=== PATIENT | female | born 1995 | race Caucasian/White ===

== ENCOUNTER 2019-07-16 12:12 | Emergency (ER) | payer OTHER ==
[~2019-07-16] VITALS: Ht 175.3 cm; Wt 63.5 kg
--- OUTSIDE RECORDS SUMMARY | ~2019-07-16 | XMS | Encounter Summary ---
Demographics + + + | Address | [address] | | | [place] [address] | + + + | Home Phone | | + + + | Preferred Language | Unknown | + + + | Marital Status | Single | + + + | Synagogue Affiliation | Unknown | + + + | Race | White | + + + | Ethnic Group | Not or | + + + Author + + + | Author | [facility] | + + + | Organization | [facility] | + + + | Address | Unknown | + + + | Phone | Unavailable | + + + Support + + +---------+ + | Name | Relationship | Address | Phone | + + +---------+ + | Marylou Grubbs | ECON | Unknown | | + + +---------+ + Care Team Providers + +------+ + | Care Multi Sensor Operator Name | Role | Phone | + [...] as of this encounter Progress Notes Interface, Dry Kiln Operator In - 04/06/2005 7:22 AM PDT [id number] [facility] Date: 03/27/2005 Clinic: Dermatology [...] Matty Robles M.D. Professor of Dermatology / [id number] / [id number] / [id number] / [id number] Electronically signed by Matty Robles 04-05-2005 05:33:41 PM documented i n this encounter Plan of Treatment Not on filedocumented as of this encounter Visit Diagnoses Not on filedocumented in this encounter"
--- OUTSIDE RECORDS SUMMARY | ~2019-07-16 | XMS | Clinical Summary ---
Demographics + + + | Address | [address] | | | [place] [address] | + + + | Home Phone | | + + + | Preferred Language | Unknown | + + + | Marital Status | Single | + + + | Judaism Affiliation | Unknown | + + + [...] Team Providers + +------+ + | Care Director Of Teaching And Learning Name | Role | Phone | + +------+ + PCP | Unavailable | + +------+ + Source Comments JENNA is fully live on both [facility] Ambulatory and [facility] InPatient.[facility] Allergies No Known Allergies Medications [...] | [facility] | xxxxxxxxxxx | 12/06/19 | [phone] | [address] | PPO | | SHIELD | E BCBS | x | 18-Pre | 8 | [address] | | | | | | sent | | [place], | | | | | | | | [place] | | | | | | | | [phone] | | + +--------+ +--------+ + +------+ [...] | | al/Fam | | 1968 | [phone] | [place] [address] | | | marlen | | | 8 (Home) | | + +--------+ +--------+ + +"
--- OUTSIDE RECORDS SUMMARY | ~2019-07-16 | XMS | Encounter Summary ---
Demographics + + + | Address | [address] | | | [place] [address] | + + + | Home Phone | | + + + | Preferred Language | Unknown | + + + | Marital Status | Single | + + + | Alevism Affiliation | Unknown | + + + | Race | White | + + + | Ethnic Group | Not or | + + + Author + + + | Author | [facility] | + + + | Organization | [facility] | + + + | Address | Unknown | + + + | Phone | Unavailable | + + + Support + + +---------+ + | Name | Relationship | Address | Phone | + + +---------+ + | Marylou Grubbs | ECON | Unknown | | + + +---------+ + Care Team Providers + +------+ + | Care Storage Center Manager Name | Role | Phone | + [...] as of this encounter Progress Notes Interface, Director Nicu In - 04/03/2005 9:09 AM PDT [id number] [facility] Date: 03/27/2005 Clinic: Dermatology [...] Matty Robles M.D. Professor of Dermatology / [id number] / [id number] / [id number] / [id number] documented i n this encounter Plan of Treatment Not on filedocumented as of this encounter Visit Diagnoses Not on filedocumented in this encounter"
--- OUTSIDE RECORDS SUMMARY | ~2019-07-16 | XMS | Encounter Summary ---
Demographics + + + | Address | [address] | | | [place] [address] | + + + | Home Phone | | + + + | Preferred Language | Unknown | + + + | Marital Status | Single | + + + | Shinto Affiliation | Unknown | + + + | Race | White | + + + | Ethnic Group | Not or | + + + Author + + + | Author | [facility] | + + + | Organization | [facility] | + + + | Address | Unknown | + + + | Phone | Unavailable | + + + Support + + +---------+ + | Name | Relationship | Address | Phone | + + +---------+ + | Marylou Grubbs | ECON | Unknown | | + + +---------+ + Care Team Providers + +------+ + | Care Line Service Attendant Name | Role | Phone | + [...] as of this encounter Progress Notes Interface, Celery Stripper In - 04/06/2005 7:22 AM PDT [id number] [facility] Date: 03/27/2005 Clinic: Dermatology [...] Matty Robles M.D. Professor of Dermatology / [id number] / [id number] / [id number] / [id number] Electronically signed by Matty Robles 04-05-2005 05:33:41 PM documented i n this encounter Plan of Treatment Not on filedocumented as of this encounter Visit Diagnoses Not on filedocumented in this encounter"
--- OUTSIDE RECORDS SUMMARY | ~2019-07-16 | XMS | Encounter Summary ---
Demographics + + + | Address | [address] | | | [place] [address] | + + + | Home Phone | | + + + | Preferred Language | Unknown | + + + | Marital Status | Single | + + + | Hoahaoism Affiliation | Unknown | + + + | Race | White | + + + | Ethnic Group | Not or | + + + Author + + + | Author | [facility] | + + + | Organization | [facility] | + + + | Address | Unknown | + + + | Phone | Unavailable | + + + Support + + +---------+ + | Name | Relationship | Address | Phone | + + +---------+ + | Marylou Grubbs | ECON | Unknown | | + + +---------+ + Care Team Providers + +------+ + | Care Explosive Ordnance Disposal Technician Name | Role | Phone | + [...] as of this encounter Progress Notes Interface, Kitchen Lead In - 04/03/2005 9:09 AM PDT [id number] [facility] Date: 03/27/2005 Clinic: Dermatology [...] Matty Robles M.D. Professor of Dermatology / [id number] / [id number] / [id number] / [id number] documented i n this encounter Plan of Treatment Not on filedocumented as of this encounter Visit Diagnoses Not on filedocumented in this encounter"
--- OUTSIDE RECORDS SUMMARY | ~2019-07-16 | XMS | Encounter Summary ---
Demographics + + + | Address | [address] | | | [place] [address] | + + + | Home Phone | | + + + | Preferred Language | Unknown | + + + | Marital Status | Single | + + + | Restorationist Affiliation | Unknown | + + + [...] Team Providers + +------+ + | Care Barrelhead Inspector Name | Role | Phone | + [...] as of this encounter Progress Notes Interface, Knife Cutter In - 04/02/2005 10:25 AM PDT [id number] [facility] Consulting Physician: Matty Robles M.D. [...] Wart Cream to be obtained through the [facility]. Directions were given for how to reach the pharmacy. The patient was told to return to the clinic in 2 to 4 weeks for further evaluation and potential for other treatment. I spent 30 minutes talking with the patient, examining her, and applying the cantharidine. Matty Robles M.D. Professor of Dermatology / [id number] / [id number] / [id number] / [id number] cc: Gael Hernandez D.O. [address] [facility] [place] [address] Electronically signed by Matty Robles 03-07-2005 03:04:50 PM documented i n this encounter Plan of Treatment Not on filedocumented as of this encounter Visit Diagnoses Not on filedocumented in this encounter"
--- OUTSIDE RECORDS SUMMARY | ~2019-07-16 | XMS | Encounter Summary ---
Demographics + + + | Address | [address] | | | [place] [address] | + + + | Home Phone | | + + + | Preferred Language | Unknown | + + + | Marital Status | Single | + + + | Buddhism Affiliation | Unknown | + + + [...] Team Providers + +------+ + | Care Health And Safety Manager Name | Role | Phone | [...] as of this encounter Progress Notes Interface, Garden Labourer In - 04/02/2005 10:25 AM PDT [id number] [facility] Consulting Physician: Matty Robles M.D. [...] Wart Cream to be obtained through the [facility]. Directions were given for how to reach the pharmacy. The patient was told to return to the clinic in 2 to 4 weeks for further evaluation and potential for other treatment. I spent 30 minutes talking with the patient, examining her, and applying the cantharidine. Matty Robles M.D. Professor of Dermatology / [id number] / [id number] / [id number] / [id number] cc: Gael Hernandez D.O. [address] [place] [address] Electronically signed by Matty Robles 03-07-2005 03:04:50 PM documented i n this encounter Plan of Treatment Not on filedocumented as of this encounter Visit Diagnoses Not on filedocumented in this encounter"
--- OUTSIDE RECORDS SUMMARY | ~2019-07-16 | XMS | Clinical Summary ---
Demographics + + + | Address | [address] | | | [place] [address] | + + + | Home Phone | | + + + | Preferred Language | Unknown | + + + | Marital Status | Single | + + + | Jain Affiliation | Unknown | + + + [...] Team Providers + +------+ + | Care Roads Superintendent Name | Role | Phone | + +------+ + PCP | Unavailable | + +------+ + Source Comments JENNA is fully live on both [facility] Ambulatory and [facility] InPatient.[facility] Allergies No Known Allergies Medications [...] | [facility] | xxxxxxxxxxx | 12/06/19 | [phone] | [address] | PPO | | SHIELD | E BCBS | x | 18-Pre | 8 | [address] | | | | | | sent | | [place], | | | | | | | | [place] | | | | | | | | [phone] | | + +--------+ +--------+ + +------+ [...] | | al/Fam | | 1968 | [phone] | [place] [address] | | | marlen | | | 8 (Home) | | + +--------+ +--------+ + +"
[~2019-07-16 12:12] MED LIST: ALKA-SELTZER P1 EA12 PO; AMITRIPTYLINE H50 MG PO; AMOXICILLIN500 MG PO; ANTI ANXIETY MED; CYMBALTA20 MG PO; DEPLIN-ALGAL O1 EAC1 PO; IMPLANON68 MG SQ; MONO-LINYAH1 EACH PO; NEURONTIN300 MG PO; NEURONTIN600 MG PO; PRISTIQ ER50 MG PO; PRISTIQ PO; SEROQUEL300 MG PO; SUBOXONE 2 MG-1 EAC2 SL; SUBOXONE 8 MG-1 EAC1 SL; TYLENOL WITH C1 EACH PO; ULTRAM50 MG PO
--- OUTSIDE RECORDS SUMMARY | 2019-07-16 12:18 | XMS ---
PreManage Notification: MARCIN BRAY Security Spa Assistant Manager Events No recent Security Events currently on file [facility] There are no care providers on record at this time. Vandana has no Care Guidelines for this patient. Lucian VISIT COUNT (12 MO.) 1 [facility] TOTAL 1 NOTE: Visits indicate total known visits. ED/UCC VISIT TRACKING (12 MO.) 07/16/2019 12:14 [facility] [place] TYPE: Emergency COMPLAINT: - WEAK, FEVER, DRUG USE INPATIENT VISIT TRACKING (12 MO.) No inpatient visits to display in this time frame [email or web address]
[2019-07-16] MEDS ORDERED: GABAPENTIN400 MG PO (12:59)
[2019-07-16] MEDS ORDERED: DIVALPROEX SOD500 MG PO (13:02)
[2019-07-16] MEDS ORDERED: VALACYCLOVIR500 MG PO (13:02)
[2019-07-16] MEDS ORDERED: AMOXICILLIN500 MG PO (16:05)
[2019-07-16] MEDS ORDERED: VENTOLIN HFA18 GM INH (16:05)
== END 2019-07-16 16:33 | disposition home or self-care (01) ==
LOC: ED 12:12
DX: J02.0 Streptococcal pharyngitis (principal); F17.200 Nicotine dependence, unspecified, uncomplicated; Z79.899 Other long term (current) drug therapy
CPT/HCPCS: 71046; 81001; 84703; 87880; 99283-25

== ENCOUNTER 2020-03-08 10:04 | Emergency (ER) | payer OTHER ==
[~2020-03-08] VITALS: Ht 175.3 cm; Wt 72.6 kg
--- OUTSIDE RECORDS SUMMARY | ~2020-03-08 | XMS | Encounter Summary ---
Demographics + + + | Address | [address] | | | [place] [address] | + + + | Home Phone | | + + + | Preferred Language | Unknown | + + + | Marital Status | Single | + + + | Episcopalian Affiliation | Unknown | + + + | Race | White | + + + | Ethnic Group | Not or | + + + Author + + + | Author | [facility] | + + + | Organization | [facility] | + + + | Address | Unknown | + + + | Phone | Unavailable | + + + Support + + +---------+ + | Name | Relationship | Address | Phone | + + +---------+ + | Marylou Grubbs | ECON | Unknown | | + + +---------+ + Care Team Providers + +------+ + | Care Oracle Webcenter Consultant Name | Role | Phone | + +------+ + PCP | Unavailable | + +------+ + Encounter Details +--------+ + + + + | Date | Type | Department | Care Team | Description | +--------+ + + + + | 03/27/ | Office | [facility] | Clinic, | Progress Note | | 2004 | Visit-Trans | | Dermatology | | | | cribed | | | | +--------+ + + + + Social History + +-------+ +--------+------+ | Tobacco Use | Types | Packs/Day | Years | Date | | | | | Used | | + +-------+ +--------+------+ | Never Assessed | | | | | + +-------+ +--------+------+ + + + | Sex Assigned at | Date Recorded | | | | + + + | Not on file | | + + + + + + + | Job Start Date | Occupation | Industry | + + + + | Not on file | Not on file | Not on file | + + + + + + + + | Travel History | Travel Start | Travel End | + + + + + + | No recent travel history available. | + + documented as of this encounter Progress Notes Interface, Management Trainee Marketing In - 04/06/2005 7:22 AM PDT [id number] [facility] Date: 03/27/2005 Clinic: Dermatology Subjective: The patient returns today for further treatment of her flat warts. She has had significant response to her initial visit where we treated her with Cantharone covered by Band-Aids. The patient has also been using Magic Wart Cream. She states that many of her lesions have resolved and many of the others have crusted and are exhibiting inflammatory reactions around the lesions. The patient and her mother are happy with the initial response. Objective: There are scattered pink flat papules located on the dorsal aspects of the hands and forearms. There are also scattered crusted papules without evidence of remaining wart. Assessment and Plan: Flat warts. The patient has had a good initial response to Cantharone and to Magic Wart Cream. She was extremely anxious about receiving any further treatment today. I discussed with her mother that I had hoped to apply Cantharone today for second time. The patient staunchly refused any further treatment today, stating that she has a swim meet coming up and would like to not be dealing with crusted lesions during that time. I instructed the mother and the patient to continue using the Magic Wart Cream. The patient will return to the clinic in 3-4 weeks for further evaluation and potential further treatment. I spent 10 minutes talking with the patient, examining her, and going over the treatment plan. Matty Robles M.D. Professor of Dermatology / [id number] / [id number] / [id number] / [id number] Electronically signed by Matty Robles 04-05-2005 05:33:41 PM documented i n this encounter Plan of Treatment Not on filedocumented as of this encounter Visit Diagnoses Not on filedocumented in this encounter"
--- OUTSIDE RECORDS SUMMARY | ~2020-03-08 | XMS | Clinical Summary ---
Demographics + + + | Address | [address] | | | [place] [address] | + + + | Home Phone | | + + + | Preferred Language | Unknown | + + + | Marital Status | Single | + + + | Cheondoism Affiliation | Unknown | + + + | Race | White | + + + | Ethnic Group | Not or | + + + Author + + + | Author | [facility] | + + + | Organization | [facility] | + + + | Address | Unknown | + + + | Phone | Unavailable | + + + Support + + +---------+ + | Name | Relationship | Address | Phone | + + +---------+ + | Marylou Grubbs | ECON | Unknown | | + + +---------+ + Care Team Providers + +------+ + | Care Superintendent Sales Name | Role | Phone | + +------+ + PCP | Unavailable | + +------+ + Source Comments JENNA is fully live on both [facility] Ambulatory and [facility] InPatient.[facility] Allergies No Known Allergies Medications Not on file Active Problems Not on file Social History + +-------+ +--------+------+ | Tobacco [...] recent travel history available. | + + Last Filed Vital Signs Not on file Plan of Treatment + + + + + | Health Maintenance | Due Date | Last Done | Comments | + + + + + | Influenza (Flu) | | | | | vaccination (#1) | 9 | | | + + + + + | Pneumococcal | Aged Out | | No longer eligible | | vaccination | | | based on patient's | | | | | age to complete this | | | | | topic | + + + + + Results Not on filefrom Last 3 Months Insurance + +--------+ +--------+ + +------+ | Payer | Benefi | Subscriber | Effect | Phone | Address | Type | | | t Plan | ID | mc | | | | | | / | | Dates | | | | | | Group | | | | | | + +--------+ +--------+ + +------+ | BLUE CROSS BLUE | [facility] | xxxxxxxxxxx | 12/06/19 | [phone] | [address] | PPO | | SHIELD | E BCBS | x | 18-Pre | 8 | [phone] | | | | | | sent | | [place], | | | | | | | | [place] | | | | | | | | [phone] | | + +--------+ +--------+ + +------+ + +--------+ +--------+ + + | Guarantor Name | Accoun | Relation to | Date | Phone | Billing Address | | | t Type | Patient | of | | | | | | | | | | + +--------+ +--------+ + + | YEISON BRAY | Person | Parent [birth year] | [address] | | | al/Fam | | 1968 | [phone] | [place] [address] | | | marlen | | | 8 (Home) | | + +--------+ +--------+ + +"
--- OUTSIDE RECORDS SUMMARY | ~2020-03-08 | XMS | Encounter Summary ---
Demographics + + + | Address | [address] | | | [place] [address] | + + + | Home Phone | | + + + | Preferred Language | Unknown | + + + | Marital Status | Single | + + + | Protestant Affiliation | Unknown | + + + | Race | White | + + + | Ethnic Group | Not or | + + + Author + + + | Organization | Unknown | + + + | Address | Unknown | + + + | Phone | Unavailable | + + + Support + + +---------+ + | Name | Relationship | Address | Phone | + + +---------+ + | Marylou Grubbs | ECON | Unknown | | + + +---------+ + Care Team Providers + +------+ + | Care Stair Builder Name | Role | Phone | + +------+ + PCP | Unavailable | + +------+ + Encounter Details +--------+ + + + + | Date | Type | Department | Care Team | Description | +--------+ + + + + | 02/27/ | Office | | Report, Outpatient | Progress Note | | 2005 | Visit-Trans | | Consultation | | | | cribed | | [...] as of this encounter Progress Notes Interface, Wind Operations Manager In - 04/02/2005 10:25 AM PDT [id number] [facility] Consulting Physician: Matty Robles M.D. Consultation Date: 02/27/2005 Consulting Physician: Gael Hernandez D.O. Reason For Requested Consultation: Treatment of flat warts. History of Present Illness: This is a 9-year-old white girl who presents with a 3-year history of flat warts. She has previously been treated with trichloroacetic acid applications and an oral course of Tagamet for 2 weeks. She has had little response to therapies. The patient's mother desires more aggressive treatment at this time. The lesions are nonpainful, nonbleeding, and nonpruritic. Past Medical History: Significant for hay fever. Medications: None. Allergies: No known drug allergies. Social History: The patient does not smoke cigarettes or drink alcohol. She is an avid swimmer. Family History: Significant for hay fever. There are no family members with asthma, eczema, or warts. Review of Systems: These were entirely negative. Physical Examination: Vital Signs: Blood pressure 100/58, pulse 72, and respirations 16. The patient was in no pain. General Appearance: The patient was healthy and in no acute distress. Mood and affect: The patient was alert and oriented x3 throughout the visit. Lymph Nodes: The patient had no palpable lymphadenopathy today. Skin: There were numerous skin-colored to pink, smooth, flat-topped papules located on the wrists, forearms, and most abundantly around and upon the knees. Remainder of the skin exam including examination of the scalp, face, neck, chest, back, arms, hands, abdomen, buttocks, genitalia, and feet was unremarkable. Assessment and Plan: Flat warts. The patient has over 50 lesions, and they have been nonresponsive to more standard therapies. I discussed all of the possible therapies with the mother today. We attempted to lightly electrodesiccate 1 lesion; however, the patient could not tolerate the pain, so this procedure was terminated. We then applied cantharidin to all of the affected areas and covered each of the areas with Band-Aids. I instructed the mother to take all of the Band-Aids off and to wash off the cantharidin later in the evening. I also prescribed Magic Wart Cream to be obtained through the [facility]. Directions were given for how to reach the pharmacy. The patient was told to return to the clinic in 2 to 4 weeks for further evaluation and potential for other treatment. I spent 30 minutes talking with the patient, examining her, and applying the cantharidine. Matty Robles M.D. Professor of Dermatology / [id number] / [id number] / [id number] / [id number] cc: Gael Hernandez D.O. [address] [facility] [address] Electronically signed by Matty Robles 03-07-2005 03:04:50 PM documented i n this encounter Plan of Treatment Not on filedocumented as of this encounter Visit Diagnoses Not on filedocumented in this encounter"
--- OUTSIDE RECORDS SUMMARY | ~2020-03-08 | XMS | Clinical Summary ---
Demographics + + + | Address | [address] | | | [place] [address] | + + + | Home Phone | | + + + | Preferred Language | Unknown | + + + | Marital Status | Single | + + + | Confucianist Affiliation | Unknown | + + + [...] Team Providers + +------+ + | Care Wood Crew Supervisor Name | Role | Phone | + +------+ + PCP | Unavailable | + +------+ + Source Comments JENNA is fully live on both [facility] Ambulatory and [facility] InPatient.[facility] Allergies No Known Allergies Medications Not on [...] | [facility] | xxxxxxxxxxx | 12/06/19 | [phone] | [address] | PPO | | SHIELD | E BCBS | x | 18-Pre | 8 | [address] | | | | | | sent | | [place], | | | | | | | | [place] | | | | | | | | [phone] | | + +--------+ +--------+ + +------+ [...] | | al/Fam | | 1968 | [phone] | [place] [address] | | | marlen | | | 8 (Home) | | + +--------+ +--------+ + +"
--- OUTSIDE RECORDS SUMMARY | ~2020-03-08 | XMS | Encounter Summary ---
Demographics + + + | Address | [address] | | | [place] [address] | + + + | Home Phone | | + + + | Preferred Language | Unknown | + + + | Marital Status | Single | + + + | Oriental Orthodox Affiliation | Unknown | + + + | Race | White | + + + | Ethnic Group | Not or | + + + Author + + + | Author | [facility] | + + + | Organization | [facility] | + + + | Address | Unknown | + + + | Phone | Unavailable | + + + Support + + +---------+ + | Name | Relationship | Address | Phone | + + +---------+ + | Marylou Grubbs | ECON | Unknown | | + + +---------+ + Care Team Providers + +------+ + | Care Biscuit Machine Operator Name | Role | Phone | [...] as of this encounter Progress Notes Interface, Physician Neonatology In - 04/06/2005 7:22 AM PDT [id number] [facility] Date: 03/27/2005 Clinic: Dermatology [...] Matty Robles M.D. Professor of Dermatology / [id number] / [id number] / [id number] / [id number] Electronically signed by Matty Robles 04-05-2005 05:33:41 PM documented i n this encounter Plan of Treatment Not on filedocumented as of this encounter Visit Diagnoses Not on filedocumented in this encounter"
--- OUTSIDE RECORDS SUMMARY | ~2020-03-08 | XMS | Encounter Summary ---
Demographics + + + | Address | [address] | | | [place] [address] | + + + | Home Phone | | + + + | Preferred Language | Unknown | + + + | Marital Status | Single | + + + | Hinduism Affiliation | Unknown | + + + [...] Team Providers + +------+ + | Care International Recruiter Name | Role | Phone | + [...] as of this encounter Progress Notes Interface, Forklift Supervisor In - 04/02/2005 10:25 AM PDT [id number] KATARINA Mazariegos Consulting Physician: Matty Robles M.D. [...] Wart Cream to be obtained through the [facility]. Directions were given for how to reach the pharmacy. The patient was told to return to the clinic in 2 to 4 weeks for further evaluation and potential for other treatment. I spent 30 minutes talking with the patient, examining her, and applying the cantharidine. Matty Robles M.D. Professor of Dermatology / [id number] / [id number] / [id number] / [id number] cc: Gael Hernandez D.O. [address] [place] [address] Electronically signed by Matty Robles 03-07-2005 03:04:50 PM documented i n this encounter Plan of Treatment Not on filedocumented as of this encounter Visit Diagnoses Not on filedocumented in this encounter"
--- OUTSIDE RECORDS SUMMARY | ~2020-03-08 | XMS | Encounter Summary ---
Demographics + + + | Address | [address] | | | [place] [address] | + + + | Home Phone | | + + + | Preferred Language | Unknown | + + + | Marital Status | Single | + + + | Rastafari Affiliation | Unknown | + + + | Race | White | + + + | Ethnic Group | Not or | + + + Author + + + | Author | [facility] | + + + | Organization | [facility] | + + + | Address | Unknown | + + + | Phone | Unavailable | + + + Support + + +---------+ + | Name | Relationship | Address | Phone | + + +---------+ + | Marylou Grubbs | ECON | Unknown | | + + +---------+ + Care Team Providers + +------+ + | Care Crown Pouncer Name | Role | Phone | + [...] as of this encounter Progress Notes Interface, Normalizer In - 04/03/2005 9:09 AM PDT [id number] KATARINA Mazariegos Clinic Date: 03/27/2005 Clinic: Dermatology [...] Matty Robles M.D. Professor of Dermatology / [id number] / [id number] / [id number] / [id number] documented i n this encounter Plan of Treatment Not on filedocumented as of this encounter Visit Diagnoses Not on filedocumented in this encounter"
--- OUTSIDE RECORDS SUMMARY | ~2020-03-08 | XMS | Encounter Summary ---
Demographics + + + | Address | [address] | | | [place] [address] | + + + | Home Phone | | + + + | Preferred Language | Unknown | + + + | Marital Status | Single | + + + | Yarsanism Affiliation | Unknown | + + + | Race | White | + + + | Ethnic Group | Not or | + + + Author + + + | Author | [facility] | + + + | Organization | [facility] | + + + | Address | Unknown | + + + | Phone | Unavailable | + + + Support + + +---------+ + | Name | Relationship | Address | Phone | + + +---------+ + | Marylou Grubbs | ECON | Unknown | | + + +---------+ + Care Team Providers + +------+ + | Care Curb Machine Operator Name | Role | Phone [...] as of this encounter Progress Notes Interface, Rewind Operator In - 04/03/2005 9:09 AM PDT [id number] KATARINA Mazariegos Clinic Date: 03/27/2005 Clinic: Dermatology [...] Matty Robles M.D. Professor of Dermatology / [id number] / [id number] / [id number] / [id number] documented i n this encounter Plan of Treatment Not on filedocumented as of this encounter Visit Diagnoses Not on filedocumented in this encounter"
[~2020-03-08 10:04] MED LIST changes: +DIVALPROEX SOD500 MG PO; +GABAPENTIN400 MG PO; +VALACYCLOVIR500 MG PO; +VENTOLIN HFA18 GM INH
--- OUTSIDE RECORDS SUMMARY | 2020-03-08 10:08 | XMS ---
PreManage Notification: MARCIN BRAY Security Diamond Sawer Events No recent Security Events currently on file CRITERIA MET - [facility] CARE PROVIDERS ERYN NORTON Physician Collision Mechanic 07/17/2019-Current PHONE: [phone] Vandana has no Care Guidelines for this patient. Care History Medical/Surgical 07/17/2019 [facility] - PLEASE CONTACT [facility]\T\amp;D SERVICES- IF PATIENT ACCEPTS SERVICES- [phone]. - [facility]\T\amp;D SERVICES CAN PROVIDE PATIENT WITH MULTI OPERATION FORMING MACHINE SETTER AND HELP WITH COMMUNITY RESOURCES. E.D. VISIT COUNT (12 MO.) 2 [facility] TOTAL 2 NOTE: Visits indicate total known visits. ED/UCC VISIT TRACKING (12 MO.) 03/08/2020 10:04 [facility] [place] TYPE: Emergency COMPLAINT: - BURN 07/16/2019 12:14 [facility] [place] TYPE: Emergency COMPLAINT: - WEAK, FEVER, DRUG USE DIAGNOSES: - Streptococcal pharyngitis - Cough - Nicotine dependence, unspecified, uncomplicated - Other fdc (current) drug therapy INPATIENT VISIT TRACKING (12 MO.) No inpatient visits to display in this time frame [email or web address]
[2020-03-08] MEDS ORDERED: SILVADENE20 GM TOP (10:39)
== END 2020-03-08 12:16 | disposition home or self-care (01) ==
LOC: ED 10:04
DX: T21.01XA Burn of unspecified degree of chest wall, initial encounter (principal); T21.32XA Burn of third degree of abdominal wall, initial encounter; T22.00XA Burn of unspecified degree of shoulder and upper limb, except wrist and hand, unspecified site, initial encounter; F17.200 Nicotine dependence, unspecified, uncomplicated; Z23 Encounter for immunization; Z79.899 Other long term (current) drug therapy; X10.1XXA Contact with hot food, initial encounter
CPT/HCPCS: 90471; 90715; 99283

== ENCOUNTER 2020-08-05 14:14 | Emergency (ER) | payer OTHER ==
[~2020-08-05] VITALS: Ht 175.3 cm; Wt 72.6 kg
[~2020-08-05 14:14] MED LIST changes: +SILVADENE20 GM TOP
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
[2020-08-05] MEDS ORDERED: PREDNISONE20 MG PO (15:32)
[2020-08-05] MEDS ORDERED: ZITHROMAX250 MG PO (15:32)
== END 2020-08-05 15:43 | disposition home or self-care (01) ==
LOC: ED 14:14
DX: J40 Bronchitis, not specified as acute or chronic (principal); F17.200 Nicotine dependence, unspecified, uncomplicated; Z79.899 Other long term (current) drug therapy; V43.52XA Car driver injured in collision with other type car in traffic accident, initial encounter; Z20.828 Contact with and (suspected) exposure to other viral communicable diseases
CPT/HCPCS: 71045; 99284-25; C9803; U0003

== ENCOUNTER 2020-10-11 09:01 | Emergency (ER) | payer OTHER ==
[~2020-10-11] VITALS: Ht 175.3 cm; Wt 72.6 kg
[~2020-10-11 09:01] MED LIST changes: +PREDNISONE20 MG PO; +ZITHROMAX250 MG PO
[2020-10-11] MEDS ORDERED: VENTOLIN HFA18 GM INH (09:09)
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
== END 2020-10-11 10:45 | disposition home or self-care (01) ==
LOC: ED 09:01
DX: S51.812A Laceration without foreign body of left forearm, initial encounter (principal); W26.8XXA Contact with other sharp object(s), not elsewhere classified, initial encounter; F17.200 Nicotine dependence, unspecified, uncomplicated; Z79.899 Other long term (current) drug therapy
CPT/HCPCS: 12004; 99282-25